=== PATIENT | male | born 1990 | race Caucasian/White ===

== ENCOUNTER 2020-07-20 01:31 | Emergency (ER) | payer OTHER ==
[2020-07-20 01:41] VITALS: BP 111/67; PULSE 113; RESP 16; TEMP 98.3
[2020-07-20] MEDS ORDERED: HYDROcodone/APAP 5-325MG 1 EACH TAB PO STA (01:49)
[2020-07-20] MEDS ORDERED: IBUPROFEN 400 MG TAB PO STA (01:49)
--- NOTE | 2020-07-20 01:53 | ED ---
Lower Extremity Injury HPI - General Chief Complaint: Extremity Injury, Lower Stated Complaint: Fall, ankle injury post op 6 weeks Time Seen by Provider: 07/20/20 01:42 Source: patient Mode of arrival: wheelchair Limitations: no limitations - History of Present Illness Initial Comments: This patient is a 30-year-old man who presents to have evaluation of his left ankle. He states that he was going down some stairs, slipped and slid down a number stairs. He believes his ankle was twisted. There is pain at the lateral malleolus and also at the foot. Complaint: ankle injury, fall -: hour(s) Injury: Ankle: Left, Foot: Left Type of Injury: inversion, hyperflexion Place: home Severity: moderate Worsens With: weight bearing Context: fall Associated Symptoms: swelling, able to partially bear weight - Related Data Previous Rx's Medication Instructions Recorded Ibuprofen 800 mg PO TID #20 tablet 07/20/20 Allergies Allergy/AdvReac Type Severity Reaction Status Date / Time No Known Allergies Allergy Verified 07/20/20 01:41 Review of Systems ROS Statement: Those systems with pertinent positive or pertinent negative responses have been documented in the HPI. ROS Other: All systems not noted in ROS Statement are negative. Constitutional: Denies: fever, chills Respiratory: Denies: cough, dyspnea Cardiovascular: Denies: chest pain, palpitations Musculoskeletal: Reports: as per HPI, joint swelling, arthralgia Skin: Denies: rash, lesions Neurological: Denies: weakness, numbness, paresthesias Past Medical History Past Medical History: No Reported History History of Any Multi-Drug Resistant Organisms: None Reported Past Surgical History: Orthopedic Surgery Additional Past Surgical History / Comment(s): left leg Past Psychological History: ADD/ADHD, Anxiety, Depression Smoking Status: Never smoker Past Alcohol Use History: Occasional Past Drug Use History: None Reported General Exam Limitations: no limitations General appearance: alert, in no apparent distress Cardiovascular Exam: Present: other (normal capillary refill. normal dorsalis pedis pulse) Extremities exam: Present: tenderness, normal capillary refill. Absent: pedal edema Left Knee exam: Present: normal inspection, full ROM. Absent: tenderness, swelling Lower Leg exam: Present: normal inspection, full ROM. Absent: tenderness, swelling Ankle exam: Present: tenderness, swelling. Absent: full ROM, abrasion, laceration, ecchymosis, deformity, crepitus, dislocation Foot/Toe exam: Present: normal inspection, full ROM. Absent: tenderness, swelling, abrasion, laceration, ecchymosis, deformity, crepitus, dislocation, erythema, amputation, calcaneal tenderness, tenderness at base of 5th metatarsal Neurovascular tendon exam: Present: no vascular compromise. Absent: pulse deficit, abnormal cap refill, motor deficit, sensory deficit, tendon deficit, extremity cold to touch Skin exam: Present: warm, dry, intact, normal color. Absent: rash Course Vital Signs 07/20/20 01:33 Temperature 98.3 F Pulse Rate 113 H Respiratory 16 Rate Blood Pressure 111/67 O2 Sat by Pulse 99 Oximetry Disposition Clinical Impression: Ankle sprain Disposition: HOME SELF-CARE Condition: Good Instructions (If sedation given, give patient instructions): Ankle Sprain (ED) Prescriptions: Ibuprofen 800 mg PO TID #20 tablet Is patient prescribed a controlled substance at d/c from ED?: No Referrals: Luis Alberto Adamson DO [Primary Care Provider] - 1-2 days
--- NOTE | 2020-07-20 02:08 | XR ---
EXAM: XR Left Foot Complete, 3 or More Views CLINICAL HISTORY: [email or web address].[email or web address] XR Reason: fall injury TECHNIQUE: Frontal, lateral and oblique views of the left foot. COMPARISON: No previous study. FINDINGS: Bones/joints: No acute fracture or dislocation including the base of the left fifth metatarsal. Calcaneus is unremarkable. Soft tissues: Soft tissues are within normal limits. No radiopaque foreign body. Other findings: Anatomic alignment is normal. IMPRESSION: No acute fracture about the left foot.
--- NOTE | 2020-07-20 02:09 | XR ---
EXAM: XR Left Ankle Complete, 3 or More Views CLINICAL HISTORY: [email or web address].[email or web address] XR Reason: fall injury TECHNIQUE: Frontal, lateral and oblique views of the left ankle. COMPARISON: No previous studies. FINDINGS: Bones/joints: A well-corticated osseous fragment is noted posteriorly to the tibia possibly representing an old posterior malleolar fracture. No acute fracture or dislocation is detected. Ankle mortise is preserved. Talar dome is within normal limits. Calcaneus is unremarkable. Soft tissues: Unremarkable. IMPRESSION: No acute fracture or dislocation about the left ankle joint.
== END 2020-07-20 02:45 | disposition home or self-care (01) ==
LOC: EC 01:31
DX: S93.402A Sprain of unspecified ligament of left ankle, initial encounter (principal); W01.0XXA Fall on same level from slipping, tripping and stumbling without subsequent striking against object, initial encounter; F32.9 Major depressive disorder, single episode, unspecified
CPT/HCPCS: 99283